=== PATIENT | male | born 1955 | race Caucasian/White ===

== ENCOUNTER → 2019-12-10 16:16 | Outpatient (REF) | payer BC, SELFPAY | LOC: ANHLAB 16:16 | PROVIDERS: PCP Internal Medicine; Visit Provider Nurse Practitioner | DX: C44.319 Basal cell carcinoma of skin of other parts of face (principal) | CPT/HCPCS: 88305 ==

== ENCOUNTER → 2020-03-02 09:14 | Outpatient (REF) | payer BC, SELFPAY | LOC: ANHLAB 09:14 | PROVIDERS: PCP Internal Medicine; Visit Provider Nurse Practitioner | DX: C44.319 Basal cell carcinoma of skin of other parts of face (principal) | CPT/HCPCS: 88305; 88331 ==

== ENCOUNTER 2024-12-16 11:26 | Outpatient (CLI) | payer BC, SELFPAY ==
--- NOTE | ~2024-12-16 | XR_ITS ---
EXAMINATION: XR knee RT min 4V, 12/16/2024 11:34 CDT HISTORY: Pain in right knee x 5 days, lidocaine patch on knee COMPARISON: No comparisons available. Findings: No acute fracture or malalignment. Moderate tricompartmental degenerative changes Soft tissues unremarkable. Impression: No acute fracture or malalignment. Reviewed, dictated and finalized at location P. Impression: No acute fracture or malalignment.
== END 2024-12-16 11:27 | disposition home or self-care (01) ==
LOC: GOSHIMG 11:27
PROVIDERS: PCP Orthopaedic Surgery; Visit Provider Orthopaedic Surgery
DX: M25.561 Pain in right knee (principal)
CPT/HCPCS: 73564